=== PATIENT | female | born 1980 | race Hispanic/Latino ===

== ENCOUNTER 2022-12-19 20:07 | Emergency (ER) | payer BC ==
[~2022-12-19] VITALS: Ht 162.6 cm; Wt 88.9 kg
[2022-12-19 21:26] LABS: BASOPHILS # (AUTO) 0.05 K/uL (0.00-0.20); BASOPHILS % (AUTO) 0.5 % (0.0-5.0); EOSINOPHILS # (AUTO) 0.14 K/uL (0.00-0.70); EOSINOPHILS % (AUTO) 1.5 % (0.0-8.0); HEMATOCRIT 36.6 % (36-48); IMMATURE GRANULOCYTE ABSOLUTE 0.04 K/uL (0-1); LYMPHOCYTES # (AUTO) 2.4 K/uL (1.0-4.8); LYMPHOCYTES % (AUTO) 25.4 % (21.0-51.0); MEAN CORPUSCULAR HEMOGLOBIN 25.4 pg (27.0-33.0); MEAN CORPUSCULAR HGB CONC 32.2 g/dL (32.0-36.0); MEAN CORPUSCULAR VOLUME 78.9 fL (79-99); MONOCYTES # (AUTO) 0.6 K/uL (0.1-1.0); MONOCYTES % (AUTO) 6.8 % (3.0-13.0); NEUTROPHILS % (AUTO) 65.4 % (40.0-77.0); PLATELET COUNT (AUTO) 359 K/uL (130-400); RED BLOOD CELL COUNT(AUTO) 4.64 MIL/uL (4.00-5.50); RED CELL DISTRIBUTION WIDTH 14.8 % (11.0-15.5); WHITE BLOOD COUNT (AUTO) 9.2 K/uL (4.8-10.8)
[2022-12-19 21:30] LABS: APPEARANCE,URINE CLOUDY (CLEAR); BILIRUBIN,URINE NEGATIVE (NEGATIVE); COLOR,URINE YELLOW (YELLOW); GLUCOSE, URINE (UA) NEGATIVE (NEGATIVE); KETONES,URINE NEGATIVE (NEGATIVE); LEUKOCYTE ESTERASE ,URINE NEGATIVE Leu/uL (NEGATIVE); NITRATE,URINE NEGATIVE (NEGATIVE); OCCULT BLOOD,URINE NEGATIVE (NEGATIVE); PROTEIN,URINE 30 mg/dL (NEGATIVE)
[2022-12-19] MEDS ORDERED: 0.9%NACL 1000ML 1,000 ML IV ONE (21:30)
[2022-12-19] MEDS ORDERED: KETOROLAC 30MG VIAL (30MG/ML) IVP ONE (21:30)
[2022-12-19] MEDS ORDERED: ONDANSETRON 4MG INJ IVP ONE (21:30)
[2022-12-19 21:32] LABS: ADD UA MICROSCOPIC YES
[2022-12-19 21:33] LABS: BACTERIA,URINE FEW /HPF (None Seen); MUCUS,URINE MOD LPF (None Seen); SQUAMOUS EPITHELIAL CELL,UR MANY /HPF (0-2)
[2022-12-19 21:37] LABS: CREATININE 0.7 mg/dL (0.5-1.5); HCG,QUALITATIVE URINE NEGATIVE (NEGATIVE); POTASSIUM 3.5 mmol/L (3.5-5.1)
[2022-12-19 21:40] LABS: ALBUMIN 3.9 g/dL (3.5-5.0); BILIRUBIN,TOTAL 0.3 mg/dL (0.2-1.0); TOTAL PROTEIN, SERUM 7.9 g/dL (6.0-8.3)
[2022-12-19] MEDS ORDERED: IOHEXOL 350 MG/ML 100ML INFUS..BTL IV ONE (23:41)
[2022-12-20] MEDS ORDERED: MORPHINE 2 MG SYG IVP ONE (01:00)
[2022-12-20 01:14] VITALS: BP 117/65; PULSE 78; RESP 18; O2SAT 98
== END 2022-12-20 02:07 | disposition home or self-care (01) ==
LOC: EDH 20:07
DX: N83.291 Other ovarian cyst, right side (principal); R10.2 Pelvic and perineal pain; R11.0 Nausea; I10 Essential (primary) hypertension; F41.9 Anxiety disorder, unspecified; F32.A Depression, unspecified; Z88.5 Allergy status to narcotic agent; Z88.8 Allergy status to other drugs, medicaments and biological substances; Z98.890 Other specified postprocedural states
CPT/HCPCS: 99285; 74177; 96374; 96361; 96375 ×2; 80053; 85025; 81001; 81025; 36415; 76856; J7030; J2405; J1885; Q9967; J2270

== ENCOUNTER 2023-08-09 20:59 | Emergency (ER) | payer BC ==
[~2023-08-09] VITALS: Ht 162.6 cm; Wt 85.3 kg
[2023-08-10] MEDS: DiphenhydrAMINE HCL 50 MG/ML VIAL IV ONE (01:57)
[2023-08-10] MEDS: SOLU-MEDROL 125MG VIAL IVP STA (01:57)
[2023-08-10] MEDS: FAMOTIDINE 20MG VIAL IV STA (01:57)
[2023-08-10] MEDS: 0.9% NACL 500ML IV.SOLN 500 ML IV ONE (01:57)
[2023-08-10] MEDS ORDERED: PRED10TA23 PO (02:34)
[2023-08-10] MEDS ORDERED: FAMO-136 PO (02:34)
[2023-08-10 03:10] VITALS: BP 142/88; PULSE 76; RESP 16; O2SAT 98
== END 2023-08-10 03:32 | disposition home or self-care (01) ==
LOC: EDH 20:59
DX: H10.12 Acute atopic conjunctivitis, left eye (principal); F41.9 Anxiety disorder, unspecified; F32.A Depression, unspecified; I10 Essential (primary) hypertension; Z79.52 Long term (current) use of systemic steroids; Z88.5 Allergy status to narcotic agent; Z90.710 Acquired absence of both cervix and uterus
CPT/HCPCS: 99284; 96374; 96375 ×2; J7040; J1200; J3490; J2919